=== PATIENT | male | born 1985 | race Caucasian/White ===

== ENCOUNTER 2020-09-20 13:30 | Emergency (ER) | payer MEDICAID ==
[~2020-09-20] VITALS: Ht 172.7 cm; Wt 64.2 kg
[2020-09-20] MEDS ORDERED: olanzapine 10mg tablet PO ONE (15:00)
[2020-09-20] MEDS ORDERED: olanzapine 10mg tablet PO SCH (15:00)
[2020-09-20 16:17] LABS: CLARITY,URINE CLEAR (Clear); COLOR,URINE YELLOW (Yellow); GLUCOSE, URINE NEGATIVE (Neg); KETONES,URINE 15 mg/dl (Neg); LEUKOCYTE ESTERASE ,URINE NEGATIVE (Neg); NITRITES, URINE NEGATIVE (Neg); OCCULT BLOOD,URINE NEGATIVE (Neg); PH,URINE 6.5 (4.8-8.0); PROTEIN,URINE NEGATIVE (Neg); UROBILINOGEN,URINE 0.2 E.U/dL (0.2-1.0)
[2020-09-20 16:19] LABS: UA COLLECTION TYPE URINAL
[2020-09-20 16:22] LABS: BASOPHILS # (AUTO) 0.1 X10'3 (0-0.2); BASOPHILS % (AUTO) 1.2 % (0-1); EOSINOPHILS # (AUTO) 0.1 X10'3 (0-0.9); EOSINOPHILS % (AUTO) 1.1 % (0-6); HEMATOCRIT 52.1 % (42.0-52.0); LYMPHOCYTES # (AUTO) 1.4 X10'3 (1.1-4.8); LYMPHOCYTES % (AUTO) 12.6 % (21-51); MEAN CORPUSCULAR HEMOGLOBIN 34.4 PG (27.0-31.0); MEAN CORPUSCULAR HGB CONC 34.8 g/dL (33.0-36.5); MEAN CORPUSCULAR VOLUME 98.7 FL (78-98); MONOCYTES # (AUTO) 0.7 X10'3 (0-0.9); MONOCYTES % (AUTO) 6.2 % (2-12); NEUTROPHILS # (AUTO) 8.6 X10'3 (1.8-7.7); NEUTROPHILS % (AUTO) 78.9 % (42-75); PLATELET COUNT 419 X10'3 (140-440); RED BLOOD COUNT 5.27 X10'6 (4.70-6.10); RED CELL DISTRIBUTION WIDTH 17.8 % (11.5-14.5); WHITE BLOOD COUNT 10.9 X10'3 (4.5-11.0)
[2020-09-20 16:27] LABS: HEMOGLOBIN 18.1 g/dl (14.0-17.9)
--- NOTE | 2020-09-20 16:35 | NUR ---
PATIENT CHANGED INTO GREEN SCRUBS. PATIENT REPORTS HOBBIES OF READING STUFF ON THE INTERNET SUCH "TRYING TO INVEST MONEY TO HELP MY PARENTS" AND "LEARNING ABOUT COVID" FOR MY GRANDPARENTS [employer]. DISCUSSED WITH PATIENT THAT HS PARENTS WHO ARE PRESENT IN THE ROOM ARE FINANCIALLY STABLE AND THAT HE NEEDS TO FOCUS ON STABLIZING HIMSELF AND GETTING HIMSELF BETTER BY PARTICIPATING IN HIS CARE BY TAKING PRESCRIBED MEDICATIONS AND PARTICIPATING IN HIS TREATMENT PLAN. DISCUSSED PLAN OF CARE HERE, VISITING HOURS, [facility]. ALL QUESTIONS ANSWERED INN SIMPLE TERMS
[2020-09-20 16:38] LABS: URINE AMPHETAMINE SCREEN NEGATIVE (Neg); URINE BARBITUATE SCREEN NEGATIVE (Neg); URINE BENZODIAZEPINES SCREEN NEGATIVE (Neg); URINE CANNABINOID SCREEN POSITIVE (Neg); URINE COCAINE SCREEN NEGATIVE (Neg); URINE METHADONE SCREEN NEGATIVE (Neg); URINE OPIATE SCREEN NEGATIVE (Neg); URINE PHENCYCLIDINE SCREEN NEGATIVE (Neg)
[2020-09-20 16:41] LABS: ALANINE AMINOTRANSFERASE 41 U/L (12-78); ALBUMIN 4.3 G/DL (3.4-5.0); ALBUMIN/GLOBULIN RATIO 1.4 (1.1-1.5); ALKALINE PHOSPHATASE 61 IU/L (46-116); ANION GAP 12 (8-16); ASPARTATE AMINO TRANSFERASE 12 U/L (10-37); BILIRUBIN,TOTAL 0.6 MG/DL (0.1-1.0); BLOOD UREA NITROGEN 9 MG/DL (7-18); BUN/CREATININE RATIO 11.8 (5.4-32.0); CALCIUM 9.2 MG/DL (8.5-10.1); CHLORIDE 104 MMOL/L (99-107); CREATININE 0.76 MG/DL (0.60-1.10); GLUCOSE 97 MG/DL (70-104); POTASSIUM 3.6 MMOL/L (3.5-5.1); SODIUM 140 MMOL/L (135-145); TOTAL CARBON DIOXIDE 24.5 MMOL/L (24-32); TOTAL PROTEIN 7.4 G/DL (6.4-8.2); eGFR > 90 ML/MIN
--- NOTE | 2020-09-20 16:45 | NUR ---
FATHER LEANDRO URSULA [phone] MOTHER LIAM URSULA [phone]
--- NOTE | 2020-09-20 18:57 | NUR ---
PT MOVED FROM ER 15 TO OVERFLOW 23
[2020-09-20] MEDS ORDERED: LORazepam 1 MG tablet PO ONE (19:45)
--- NOTE | 2020-09-20 20:02 | NUR ---
Pt is resting in bed, states he in anxious and feels he will have trouble sleeping tonight. Sobia consulted, 1mg ativan PO x1 to be given.
[2020-09-20] MEDS: traZODone 50mg tablet PO SCH (21:00)
--- NOTE | 2020-09-20 22:41 | NUR ---
breaking primary RN for 15 minute break patient in bed lying on right side eyes open patient asked if there was anything that could decrease there anxiety and help them sleep, administered appropriate perscribed medication on eMAR for patients condition will report back to the primary RN after 15 min break
--- NOTE | 2020-09-21 02:00 | NUR ---
Pt resting quietly on R side RR14
--- NOTE | 2020-09-21 04:24 | NUR ---
PT sleeping on L side, respirastions even and unlabored
--- NOTE | 2020-09-21 05:22 | NUR ---
Breaking primary RN, patient resting on his side in ED bed 23.
--- NOTE | 2020-09-21 06:28 | NUR ---
Patient sleeping on right side. No distress observed. Continue to monitor.
--- NOTE | 2020-09-21 06:48 | NUR ---
Patient ambulatory to BR and back. No distress observed. Continue to monitor.
[2020-09-21] MEDS ORDERED: ESCITALOPRAM OXALATE 5 MG TABLET PO SCH (08:00)
--- NOTE | 2020-09-21 08:17 | NUR ---
Patient eating breakfast. No distress observed. Continue to monitor.
--- NOTE | 2020-09-21 09:49 | NUR ---
Patient's parents are visiting with patient. No distress observed. Continue to monitor.
--- NOTE | 2020-09-21 10:11 | NUR ---
[facility], Tejal, and mother at bedside. Patient in no distress at this time. Continue to monitor.
--- NOTE | 2020-09-21 10:39 | NUR ---
Patient placed on a 5150 by HAY Toure.
--- NOTE | 2020-09-21 12:54 | NUR ---
Patient does not want to eat. Tray at bedside. Continue to monitor.
--- NOTE | 2020-09-21 13:59 | NUR ---
Patient accepted at [facility].
[2020-09-21] MEDS ORDERED: LORazepam 1 MG tablet PO ONE (15:20)
--- NOTE | 2020-09-21 15:43 | NUR ---
RN gave patient 1 mg Ativan for anxiety. Patient was laying there looking anxious and stressed. Patient stated he was feeling that way. RN got an order from Dr Hassan. Continue to monitor.
--- NOTE | 2020-09-21 16:02 | NUR ---
Pt's parents are visiting. They inquired about pants bought to send with pt [facility]. Explained items with strings will not be allowed. Pt's father leaving to return pants for those w/ an elastic waistband. Mother remains bedside.
--- NOTE | 2020-09-21 18:19 | NUR ---
Mother is visiting patient. No distress observed. Continue to monitor.
--- NOTE | 2020-09-21 19:01 | NUR ---
The patient was visiting with his parents and the parents present as supportive and loving. He is aware that he is going to be transfered this evening to [facility]. He stated that he is having a lot of quilt and negative thoughts. He reports feeling that things are not real. After his heart and lungs were assessed in the general nursing assessment he asked if his heart was beating because he recently believed that it was not. He reports he has had a low appetite but he did eat 100% of his dinner.
[2020-09-21] MEDS: traZODone 50mg tablet PO SCH (20:59)
--- NOTE | 2020-09-21 20:59 | NUR ---
The patient appears to be sleeping and is pending transport to [facility]
[2020-09-21 21:54] VITALS: BP 129/81
== END 2020-09-21 21:57 | disposition home or self-care (01) ==
LOC: ER 17:09
DX: F20.0 Paranoid schizophrenia (principal); R45.851 Suicidal ideations; R94.6 Abnormal results of thyroid function studies; F12.90 Cannabis use, unspecified, uncomplicated; Z72.89 Other problems related to lifestyle; Z20.822 Contact with and (suspected) exposure to COVID-19
CPT/HCPCS: 36415; 80053; 80305; 81003; 84443; 85025; 87635; 99285; C9803